=== PATIENT | male | born 1990 | race American Indian/Alaskan Native ===

== ENCOUNTER 2022-01-01 08:27 | Emergency (ER) | payer SELFPAY ==
[2022-01-01 08:48] VITALS: BP 132/79
[2022-01-01] MEDS ORDERED: predniSONE 20 MG TAB PO ONE (10:32)
[2022-01-01] MEDS ORDERED: BENZONATATE 100 MG CAP PO ONE (10:32)
[2022-01-01] MEDS ORDERED: KETOROLAC 10 MG TAB PO ONE (10:32)
--- NOTE | 2022-01-01 11:02 | XRay Report ---
CHEST 2 VIEWS INDICATION / CLINICAL INFORMATION: sob, congestion. COMPARISON: None available. FINDINGS: SUPPORT DEVICES: None. HEART / MEDIASTINUM: No significant abnormality. LUNGS / PLEURA: No significant pulmonary or pleural abnormality. No pneumothorax. ADDITIONAL FINDINGS: No significant additional findings. IMPRESSION: 1. No acute findings. Signer Name: Shane Galvin Jr, MD Signed: 01/01/2022 10:57 AM Workstation Name: [id number]
--- NOTE | 2022-01-01 11:51 | Emergency Department Report ---
ED ENT HPI - General Chief complaint: Upper Respiratory Infection Stated complaint: COUGH/CONGESTION Time Seen by Provider: 01/01/22 09:50 Source: patient Mode of arrival: Ambulatory Limitations: No Limitations - Related Data Previous Rx's Medication Instructions Recorded Last Taken Type methylPREDNISolone [Medrol 4MG 4 mg PO DAILY #1 pack 01/01/22 Unknown Rx DOSEPAK (21 tabs)] Allergies Allergy/AdvReac Type Severity Reaction Status Date / Time No Known Allergies Allergy Unverified 01/01/22 08:49 ED Dental HPI - General Chief complaint: Upper Respiratory Infection Stated complaint: COUGH/CONGESTION Time Seen by Provider: 01/01/22 09:50 Source: patient Mode of arrival: Ambulatory Limitations: No Limitations - Related Data Previous Rx's Medication Instructions Recorded Last Taken Type methylPREDNISolone [Medrol 4MG 4 mg PO DAILY #1 pack 01/01/22 Unknown Rx DOSEPAK (21 tabs)] Allergies Allergy/AdvReac Type Severity Reaction Status Date / Time No Known Allergies Allergy Unverified 01/01/22 08:49 ED Review of Systems ROS: Stated complaint: COUGH/CONGESTION Other details as noted in HPI ED Past Medical Hx - Medications Home Medications: Home Medications Medication Instructions Recorded Confirmed Last Taken Type methylPREDNISolone [Medrol 4MG 4 mg PO DAILY #1 pack 01/01/22 Unknown Rx DOSEPAK (21 tabs)] ED Physical Exam - General Limitations: No Limitations ED Course Vital Signs 01/01/22 08:43 Temperature 98.2 F Pulse Rate 89 Respiratory 18 Rate Blood Pressure 132/79 [Right] O2 Sat by Pulse 99 Oximetry Critical care attestation.: If time is entered above; I have spent that time in minutes in the direct care of this critically ill patient, excluding procedure time. ED Disposition Clinical Impression: URI with cough and congestion Disposition: 01 HOME / SELF CARE / HOMELESS Is pt being admited?: No Does the pt Need Aspirin: No Condition: Stable Instructions: Upper Respiratory Infection, Adult, [id number], Cough, Adult, [id number] Additional Instructions: Take medications as prescribed. Follow-up with primary care provider if no improvement or worsening symptoms. Return to the emergency department as needed. Prescriptions: methylPREDNISolone [Medrol 4MG DOSEPAK (21 tabs)] 4 mg PO DAILY #1 pack Referrals: GONZALEZ TUCKER MD [Primary Care Provider] - 3-5 Days Forms: Work/School Release Form(ED) Time of Disposition: 11:51
== END 2022-01-01 12:23 | disposition home or self-care (01) ==
LOC: ED 08:27
DX: J06.9 Acute upper respiratory infection, unspecified (principal); R05.9 Cough, unspecified
CPT/HCPCS: 71046; 99283